=== PATIENT | female | born 1970 | race Caucasian/White ===

== ENCOUNTER 2019-01-23 07:52 | Observation (INO) | payer OTHER ==
[2019-01-21 16:02] LABS: CLARITY,URINE CLOUDY (Clear); COLOR,URINE YELLOW (Yellow); GLUCOSE, URINE NEGATIVE (Neg); KETONES,URINE NEGATIVE (Neg); LEUKOCYTE ESTERASE ,URINE NEGATIVE (Neg); NITRITES, URINE NEGATIVE (Neg); OCCULT BLOOD,URINE NEGATIVE (Neg); PROTEIN,URINE NEGATIVE (Neg)
[2019-01-21 16:03] LABS: BASOPHILS # (AUTO) 0.1 X10'3 (0-0.2); BASOPHILS % (AUTO) 1.1 % (0-1); EOSINOPHILS # (AUTO) 0.1 X10'3 (0-0.9); EOSINOPHILS % (AUTO) 2.1 % (0-6); LYMPHOCYTES # (AUTO) 1.7 X10'3 (1.1-4.8); LYMPHOCYTES % (AUTO) 24.6 % (21-51); MEAN CORPUSCULAR HEMOGLOBIN 30.3 PG (27.0-31.0); MEAN CORPUSCULAR HGB CONC 34.4 g/dL (33.0-36.5); MEAN CORPUSCULAR VOLUME 88.1 FL (78-98); MEAN PLATELET VOLUME 8.3 FL (7.4-10.4); MONOCYTES # (AUTO) 0.5 X10'3 (0-0.9); MONOCYTES % (AUTO) 7.2 % (2-12); NEUTROPHILS # (AUTO) 4.6 X10'3 (1.8-7.7); PRE OP HEMATOCRIT 35.7 % (35.0-45.0); PRE OP HEMOGLOBIN 12.3 g/dL (12.0-16.0); PRE OP PLATELET COUNT 299 X10'3 (140-440); RED BLOOD COUNT 4.06 X10'6 (4.20-5.60)
[2019-01-21 16:03] LABS: UA COLLECTION TYPE CLN CATCH MIDSTREAM
[2019-01-21 16:25] LABS: ALBUMIN 3.9 G/DL (3.4-5.0); ALKALINE PHOSPHATASE 54 IU/L (46-116); BLOOD UREA NITROGEN 7 MG/DL (7-18); BUN/CREATININE RATIO 9.6 (6.6-38.0); CHLORIDE 105 MMOL/L (99-107); CREATININE 0.73 MG/DL (0.40-0.90); PRE OP ALT 25 U/L (30-65); PRE OP ANION GAP 6 (8-16); PRE OP AST 17 U/L (10-37); PRE OP BILIRUB, TOTAL 0.4 MG/DL (0.0-1.0); PRE OP GLUCOSE 109 MG/DL (70-104); PRE OP POTASSIUM 3.6 MMOL/L (3.4-5.1); PRE OP SODIUM 140 MMOL/L (135-145); TOTAL PROTEIN 7.8 G/DL (6.4-8.2); eGFR 85 ML/MIN
[2019-01-21 16:32] LABS: RBC,URINE NONE SEEN /HPF (0-2); WBC,URINE 0-4 /HPF (0-4)
[2019-01-21 16:33] LABS: BACTERIA,URINE FEW /HPF (Neg); MUCUS STRANDS NONE SEEN /LPF (Neg); SQUAMOUS EPITHELIAL CELL,UR MODERATE /LPF (FEW)
[2019-01-21 16:56] LABS: HCG SERUM QL NEGATIVE
[~2019-01-23] VITALS: Ht 154.9 cm; Wt 70.3 kg
[2019-01-23] VITALS (17 sets, daily range): BP systolic 110–149; BP diastolic 62–100
[~2019-01-23 07:52] MED LIST: SYNTHROID PO; ceFOXitin 2 GM ADDvantage bag 100 ML IV ONE; famotidine 20mg tablet PO ONE; ringers solution, lacted 1,000 ML IV SCH
[2019-01-23] MEDS ORDERED: hydrALAZINE 20mg/ml inj. IV PRN (08:20)
[2019-01-23] MEDS ORDERED: morphine 4 MG/ML inj SYRINge IV PRN ×2 (08:20)
[2019-01-23] MEDS ORDERED: fentaNYL/PF 50MCG/1 ML 2ML syringe IV PRN ×2 (08:20)
[2019-01-23] MEDS ORDERED: ringers solution, lacted 1,000 ML IV SCH ×2 (08:20→11:37)
[2019-01-23] MEDS ORDERED: ondansetron/PF 4mg/2ml inj IV PRN ×2 (08:20→11:40)
[2019-01-23] MEDS ORDERED: labetalol 20mg/4ml (5mg/ml) syringe IV PRN (08:20)
[2019-01-23] MEDS ORDERED: epiNEPHrine 1 mg/ml inj ONE (08:45)
[2019-01-23] MEDS ORDERED: BUPIVAcaine/PF 2.5mg/ml (0.25%) 10ml vial ONE (08:45)
[2019-01-23] MEDS ORDERED: BUPIVAcaine/PF 2.5 mg/ml (0.25%) 30ml vial ONE ×2 (08:46→10:22)
[2019-01-23] MEDS ORDERED: vasoPRESSIN 20 units/ml inj. ONE (08:46)
[2019-01-23] MEDS ORDERED: neomy sulf/polymyxin B sulf. GU irrigation 1ml amp IR ONE (08:47)
[2019-01-23] MEDS ORDERED: clindamycin phosphate 40gm vag cream ONE (08:47)
[2019-01-23] MEDS ORDERED: sevoflurane 250ml liquid IH ONE (09:37)
[2019-01-23] MEDS ORDERED: dexamethasone sod phosphate 10mg/ml inj ONE (09:37)
[2019-01-23] MEDS ORDERED: neostigmine methylsulfate 1 MG/ML 10ml vial ONE (09:37)
[2019-01-23] MEDS ORDERED: glycopyrrolate 0.2mg/ml inj ONE (09:37)
[2019-01-23] MEDS ORDERED: fentaNYL/PF 50MCG/1 ML 2ML syringe ONE (09:38)
[2019-01-23] MEDS ORDERED: ondansetron/PF 4mg/2ml inj ONE (09:38)
[2019-01-23] MEDS ORDERED: LIDOcaine 2% (20mg/ml) 5ml vial ONE (09:38)
[2019-01-23] MEDS ORDERED: rocuronium 10mg/ml inj IV ONE (09:38)
[2019-01-23] MEDS ORDERED: propofol inj 20 ML IV ONE (09:38)
[2019-01-23] MEDS ORDERED: temazepam 15mg capsule PO PRN (11:40)
[2019-01-23] MEDS ORDERED: magnesium hydroxide 30ml (MOM) UD suspension PO PRN (11:40)
[2019-01-23] MEDS ORDERED: LORazepam 2 mg/ml vial IV PRN (11:40)
[2019-01-23] MEDS ORDERED: diphenhydrAMINE 50 mg/ml inj IV PRN (11:40)
[2019-01-23] MEDS ORDERED: ketorolac trometh. 30mg/ml inj. IV PRN (11:40)
[2019-01-23] MEDS ORDERED: metoclopramide 5 mg/ml inj IV PRN (11:40)
[2019-01-23] MEDS ORDERED: normal saline 500ml IV soln 500 ML IV PRN (11:40)
[2019-01-23] MEDS ORDERED: HYDROcodone/acetaminophen 10/325mg tab PO PRN (11:40)
--- NOTE | 2019-01-23 11:53 | NUR ---
Received from OR via SURGICAL BED , accompanied by Anesthesiologist ANTIONETTE and report given by Anesthesiolgist. PATIENT WITH 20G PIV IN LEFT UE RUNNING LR AT 100. 3 ABDOMINAL LAP SITES PRESENT WITH NO DRAINAGE. RANKIN CATHETER PRESENT AND IN PLACE. 10L MASK ON 100% SATURATIONS. Addendum: 01/23/19 at 1211 by Baron Alva RN, RN Amended: Links added.
--- NOTE | 2019-01-23 13:03 | NUR ---
Report called to receiving nurse. Transferred via SURGICAL BED WITH ONE BAG OF Belongings AND ONE PAIR GLASSES. Special Issues communicated to receiving nurse [email or web address]. BED LOW. CALL LIGHT PRESENT. DENIES PAIN AT THIS TIME. LAP SITES ALL CDI. VSS. Addendum: 01/23/19 at 1322 by Baron Alva RN, RN Amended: Links added.
[2019-01-23] MEDS ORDERED: LEVO50TA PO (14:06)
[2019-01-23] MEDS: HYDROcodone/acetaminophen 10/325mg tab PO PRN ×2 (17:20→21:37)
--- NOTE | 2019-01-23 18:18 | NUR ---
Patient in room [facility]. I have received report from CHADD Soto and had the opportunity to ask questions and assume patient care.
--- NOTE | 2019-01-23 18:24 | NUR ---
GAVE REORT TO KARINA FLORENTINO
[2019-01-23] MEDS: docusate sod 100mg capsule PO SCH (19:39)
[2019-01-24 00:49] VITALS: BP 111/62
[2019-01-24 05:21] LABS: BASOPHILS % (AUTO) 0.1 % (0-1); EOSINOPHILS % (AUTO) 0 % (0-6); HEMATOCRIT 31.8 % (35.0-45.0); HEMOGLOBIN 10.8 g/dl (12.0-16.0); LYMPHOCYTES # (AUTO) 1.4 X10'3 (1.1-4.8); LYMPHOCYTES % (AUTO) 9.9 % (21-51); MEAN CORPUSCULAR HEMOGLOBIN 30.4 PG (27.0-31.0); MEAN CORPUSCULAR HGB CONC 33.9 g/dL (33.0-36.5); MEAN CORPUSCULAR VOLUME 89.6 FL (78-98); MEAN PLATELET VOLUME 8.7 FL (7.4-10.4); MONOCYTES # (AUTO) 0.9 X10'3 (0-0.9); MONOCYTES % (AUTO) 5.9 % (2-12); NEUTROPHILS # (AUTO) 12.2 X10'3 (1.8-7.7); NEUTROPHILS % (AUTO) 84.1 % (42-75); PLATELET COUNT 226 X10'3 (140-440); RED BLOOD COUNT 3.55 X10'6 (4.20-5.60); RED CELL DISTRIBUTION WIDTH 13.6 % (11.5-14.5); WHITE BLOOD COUNT 14.5 X10'3 (4.5-11.0)
[2019-01-24 05:38] LABS: ALBUMIN 3.3 G/DL (3.4-5.0); ANION GAP 6 (8-16); BLOOD UREA NITROGEN 6 MG/DL (7-18); BUN/CREATININE RATIO 7.8 (6.6-38.0); CALCIUM 8.3 MG/DL (8.5-10.1); CHLORIDE 106 MMOL/L (99-107); CREATININE 0.77 MG/DL (0.40-0.90); GLUCOSE 114 MG/DL (70-104); POTASSIUM 3.7 MMOL/L (3.5-5.1); SODIUM 141 MMOL/L (135-145); eGFR 80 ML/MIN
--- NOTE | 2019-01-24 06:25 | NUR ---
Problems reprioritized. Patient report given, questions answered & plan of care reviewed with CHADD Ceballos.
--- NOTE | 2019-01-24 06:44 | NUR ---
Patient in room [facility]. I have received report from Poli FLORENTINO and had the opportunity to ask questions and assume patient care.
[2019-01-24] MEDS ORDERED: enoxaparin 40mg/0.4ml syringe SQ SCH (08:00)
[2019-01-24] MEDS: docusate sod 100mg capsule PO SCH (09:10)
[2019-01-24 11:00] VITALS: BP 103/65
--- NOTE | 2019-01-24 12:48 | NUR ---
Pt Discharged to home. packed and took all belongings along with pt's vazquez. Pt's IV cath. removed intact, Pt A & O and in no apparent distress. Pt urinated 1100 ml since 0600 this am. Bladder scanned and residual volume was <[address] Trujillo notified, pt did not needed a leg cath to go home. Pt voiding with out a problem. Pt wheeled out to the front where picked her up.
[2019-01-25] MEDS ORDERED: levoTHYROXINE 25mcg tablet PO SCH (08:00)
== END 2019-01-24 12:40 | disposition home or self-care (01) ==
LOC: PAS 07:52 → SUR 3N 14:56
PROVIDERS: ADMIT Obstetrics & Gynecology Obstetrics; ATTEND Obstetrics & Gynecology Obstetrics
DX: N92.1 Excessive and frequent menstruation with irregular cycle (principal); D25.9 Leiomyoma of uterus, unspecified; K40.90 Unilateral inguinal hernia, without obstruction or gangrene, not specified as recurrent
CPT/HCPCS: 36415; 58552; 71046; 80048; 80053; 81001; 82948; 84443; 84703; 85025; 86885; 86900; 86901; 93005; 96374; 96375; G0378; J0171; J0694; J1100; J1885; J2001; J2405; J2704; J2710; J3010; J3490; J7120; A4314; A4618; A7000; J1650